=== PATIENT | female | born 1995 | race Hispanic/Latino ===

== ENCOUNTER 2024-10-24 01:50 | Emergency (ER) | payer OTHER ==
[2024-10-24 03:12] LABS: Absolute Basophils 0.1 K/uL (0-0.5); Absolute Eosinophils 0.2 K/uL (0-0.5); Absolute Lymphocytes (CBC) 2.5 K/uL (0.7-4.9); Absolute Monocytes 0.5 K/uL (0.1-1.3); Absolute Neutrophil 4.3 K/uL (1.8-8.0); Basophils % 1.1 % (0-1.3); Eosinophils % 2.8 % (0-4.4); Hematocrit 35.1 % (36.0-45.0); Hemoglobin 11.6 g/dL (12.0-15.0); Lymphocytes % 33.1 % (15.3-44.8); MCH 26.7 pg (27.0-35.0); MCHC 32.9 g/dL (32.0-36.0); MPV 9.4 fL (7.6-11.3); Monocytes % 6.9 % (3.3-12.3); Neutrophils % 56.1 % (41.7-73.7); Nucleated Red Blood Cells % 0.1 % (0-0); Platelets 255 thou/uL (152-406); RBC Red Blood Cell Count 4.33 M/uL (3.86-4.86); Red Cell Distribution Width 15.6 % (12.1-15.2)
[2024-10-24] MEDS ORDERED: NA CHLORIDE 0.9% 500 ML ONE ×2 (03:13→03:23)
[2024-10-24] MEDS ORDERED: METOCLOPRAMIDE 10 MG/2mL INJ ONE (03:13)
[2024-10-24] MEDS ORDERED: DIPHENHYDRAMINE 50 MG/ML VIAL ONE (03:13)
[2024-10-24] MEDS ORDERED: LORazepam 2 MG/ML VIAL ONE ×2 (03:23→04:41)
[2024-10-24 03:28] LABS: Anion Gap 9.8 mEq/L (5.0-15.0); Potassium 3.8 mEq/L (3.5-5.1)
[2024-10-24] MEDS ORDERED: NA CHLORIDE 0.9% 1,000 ML ONE (04:41)
[2024-10-24 05:00] LABS: Thyroid Stimulating Hormone 4.11 uIU/mL (0.358-3.740)
--- NOTE | 2024-10-24 06:16 | ER ---
Nurse's Notes [facility] Name: Angela Perez Age: 29 yrs Sex: Female : 1995 Arrival Date: 10/24/2024 Time: 01:50 Bed 5 Private MD: Diagnosis: Chest pain, unspecified Presentation: 10/24 02:15 Chief complaint: Patient states: CP and palpitations since last night. Coronavirus lg3 screen: Client denies travel out of the [place] in the last 14 days. At this time, the client does not indicate any symptoms associated with coronavirus-19. Ebola Screen: No symptoms or risks identified at this time. Initial Sepsis Screen: Does the patient meet any 2 criteria? No. Patient's initial sepsis screen is negative. Does the patient have a suspected source of infection? No. Patient's initial sepsis screen is negative. Risk Assessment: Do you want to hurt yourself or someone else? Patient reports no desire to harm self or others. Onset of symptoms was October 23, 2024. 02:15 Method Of Arrival: EMS: [facility] lg3 02:15 Acuity: SUHAIL 3 lg3 Triage Assessment: 02:39 General: Appears in no apparent distress. comfortable, Behavior is calm, cooperative. lg3 Pain: Complains of pain in chest Pain does not radiate. Pain currently is 3 out of 10 on a pain scale. Quality of pain is described as heavy, sharp. EENT: No deficits noted. No signs and/or symptoms were reported regarding the EENT system. Neuro: No deficits noted. [place] Agitation-Sedation Scale (RASS): 0 - Alert and Calm Level of Consciousness is awake, alert, obeys commands, Oriented to person, place, time, situation. Cardiovascular: Reports chest pain, Heart tones S1 S2 present Capillary refill < 3 seconds Clubbing of nail beds is absent JVD is absent Patient's skin is warm and dry. Rhythm is sinus rhythm. Respiratory: No deficits noted. Airway is patent Respiratory effort is even, unlabored, Respiratory pattern is regular, symmetrical, Breath sounds are clear bilaterally. GI: No deficits noted. No signs and/or symptoms were reported involving the gastrointestinal system. : No signs and/or symptoms were reported regarding the genitourinary system. Derm: No deficits noted. No signs and/or symptoms reported regarding the dermatologic system. Skin is intact, is healthy with good turgor, Skin is dry, Skin is normal, Skin temperature is warm. Musculoskeletal: No deficits noted. No signs and/or symptoms reported regarding the musculoskeletal system. Circulation, motion, and sensation intact. Range of motion: intact in all extremities. 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 - Infectious Disease History:: Denies. - Social history:: Smoking status: Patient denies any tobacco usage or history of. Patient/guardian denies using alcohol, street drugs. Screenin:41 [facility] ED Fall Risk Assessment (Adult) History of falling in the last 3 months, lg3 including since admission No falls in past 3 months (0 pts) Confusion or Disorientation No (0 pts) Intoxicated or Sedated No (0 pts) Impaired Gait No (0 pts) Mobility Assist Device Used No (0 pt) Altered Elimination No (0 pt) Score/Fall Risk Level 0 - 2 = Low Risk Oriented to surroundings, Maintained a safe environment, Educated pt \T\ family on fall prevention, incl call for assistance when getting out of bed, Assessed \T\ reinforced patient's understanding of fall precautions. Abuse screen: Denies threats or abuse. Denies injuries from another. Nutritional screening: No deficits noted. Tuberculosis screening: No symptoms or risk factors identified. Assessment: 02:41 General: see triage assessment. Pain: Complains of pain in chest Pain does not radiate. lg3 Pain currently is 3 out of 10 on a pain scale. Quality of pain is described as heavy, pressure, Pain began 1 day ago. 04:48 Reassessment: Patient appears in no apparent distress at this time. Patient and/or bm8 family updated on plan of care and expected duration. Pain level reassessed. Patient is alert, oriented x 3, equal unlabored respirations, skin warm/dry/pink. Patient denies pain at this time. Patient states feeling better. 06:53 Reassessment: Patient appears in no apparent distress at this time. Patient and/or bm8 family updated on plan of care and expected duration. Pain level reassessed. Patient is alert, oriented x 3, equal unlabored respirations, skin warm/dry/pink. pt reports mild headache but is ready to go Patient states feeling better. Patient states symptoms have improved. Vital Signs: 02:15 BP 119 / 77; Pulse 91; Resp 16 S; Temp 97.8(O); Pulse Ox 100% on R/A; Weight 90.72 kg lg3 (R); Height 5 ft. 5 in. (R); Pain 3/10; 03:11 BP 129 / 89; Pulse 93; Resp 16; Pulse Ox 100% on R/A; dd2 04:48 BP 127 / 77; Pulse 120; Resp 22; Temp 97.8; Pulse Ox 100% ; Pain 0/10; bm8 06:15 Pulse 108; ec2 06:53 BP 133 / 77; Pulse 112; Resp 22; Temp 97.8; Pulse Ox 100% ; Pain 2/10; bm8 02:15 Body Mass Index 33.28 (90.72 kg, 165.1 cm) lg3 02:15 Pain Scale: Adult lg3 04:48 Pain Scale: Adult bm8 06:53 Pain Scale: Adult bm8 Сергей Coma Score: 04:48 Eye Response: spontaneous(4). Motor Response: obeys commands(6). Verbal Response: bm8 oriented(5). Total: 15. 06:53 Eye Response: spontaneous(4). Motor Response: obeys commands(6). Verbal Response: bm8 oriented(5). Total: 15. ED Course: 01:56 Patient arrived in ED. [email or web address] 02:11 Latrell Espinoza MD is Attending Physician. ec2 02:26 XRAY Chest (1 view) In Process Unspecified. EDMS 02:39 Triage completed. lg3 02:39 Arm band placed on right wrist. lg3 02:40 EKG done, by phlebotomy services technician. af3 02:41 Initial lab(s) drawn, by ED staff, sent to lab. Inserted saline lock: 20 gauge in left lg3 antecubital area, using aseptic technique. Blood collected. Flushed with 10 mL NS. Patient maintains SpO2 saturation greater than 95% on room air. 02:41 Patient has correct armband on for positive identification. Family accompanied patient. lg3 04:48 No provider procedures requiring assistance completed. bm8 04:48 Client placed on continuous cardiac and pulse oximetry monitoring. NIBP monitoring bm8 applied. bus monitor on. Pulse ox on. NIBP on. Door closed. Noise minimized. Visitors limited. Warm blanket given. Pillow given. Verbal reassurance given. Head of bed elevated. 06:51 Guicho Rangel, RN is Primary Nurse. bm8 06:53 IV discontinued, intact, bleeding controlled, No redness/swelling at site. Pressure bm8 dressing applied. 06:53 Provided Education on: post er care. bm8 Administered Medications: 03:30 Drug: metoCLOPramide IVP 10 mg IVP once; over 1 to 2 minutes Route: IVP; Site: left 8 antecubital; 06:54 Follow up: Response: No adverse reaction bm8 03:30 Drug: diphenhydrAMINE IVP 25 mg IVP once Route: IVP; Site: left antecubital; bm8 06:54 Follow up: Response: No adverse reaction bm8 03:30 Drug: NS 0.9% IV 500 ml 500 ml IV at 1 bolus once; to be given as a bolus over 30 bm8 minutes Volume: 500 ml; Route: IV; Rate: 1 bolus; Site: left antecubital; 06:54 Follow up: Response: No adverse reaction; IV Status: Completed infusion bm8 03:31 Drug: NS 0.9% IV 500 ml 500 ml IV at 1 bolus once; to be given as a bolus over 30 bm8 minutes Volume: 500 ml; Route: IV; Rate: 1 bolus; Site: left antecubital; 06:54 Follow up: Response: No adverse reaction; IV Status: Completed infusion bm8 03:31 Drug: Ativan IVP 1 mg IVP once Route: IVP; Site: left antecubital; bm8 06:54 Follow up: Response: No adverse reaction bm8 04:48 Drug: NS 0.9% IV 1000 ml IV at 1 bolus Per protocol; to be given as a bolus over 60 bm8 minutes Route: IV; Rate: 1 bolus; Site: left antecubital; 06:54 Follow up: Response: No adverse reaction; IV Status: Completed infusion bm8 04:48 Drug: Ativan IVP 2 mg IVP once Route: IVP; Site: left antecubital; bm8 06:54 Follow up: Response: No adverse reaction bm8 Medication: 02:41 VIS not applicable for this client. lg3 Outcome: 06:15 Discharge ordered by . [email or web address] 06:53 Discharged to home ambulatory, with family, bm8 06:53 Condition: stable 06:53 Discharge instructions given to patient, family, Instructed on discharge instructions, follow up and referral plans. Demonstrated understanding of instructions, follow-up care, medications, Prescriptions given X 1, 06:55 Patient left the ED. bm8 Signatures: Dispatcher [employer] EDEmily Conti, RN RN lg3 Malgorzata [email or web address] Latrell Espinoza MD MD ec2 Guicho Rangel RN RN bm8 Sabrina Banks DIANA, RN RN dd2
--- NOTE | 2024-10-24 06:16 | EDPHYS ---
Physician Documentation [facility] Name: Angela Perez Age: 29 yrs Sex: Female : 1995 Arrival Date: 10/24/2024 Time: 01:50 Bed 5 Private MD: ED Physician Latrell Espinoza HPI: 10/24 02:24 This 29 yrs old Female presents to ER via Unassigned with complaints of Chest ec2 Pain. 02:24 Patient arrives today for evaluation of chest pain, palpitations as well as ec2 lightheadedness. Patient reports history of vertigo. Patient reports that she also has history of anxiety. States that she experienced palpitations today. No specific inciting factor. Patient reports improvement in symptoms at this time.. 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 - Infectious Disease History:: Denies. - Social history:: Smoking status: Patient denies any tobacco usage or history of. Patient/guardian denies using alcohol, street drugs. ROS: 02:24 Constitutional: as per hpi ec2 Exam: 02:24 Constitutional: GEN: NAD Head: atraumatic Eyes: EOMI Ears: External ears are ec2 normal. CV: regular rate LUNGS: no respiratory distress ABD: non-distended SKIN: no evidence of rashes MSK: no evidence of trauma Vital Signs: 02:15 BP 119 / 77; Pulse 91; Resp 16 S; Temp 97.8(O); Pulse Ox 100% on R/A; Weight 90.72 kg lg3 (R); Height 5 ft. 5 in. (R); Pain 3/10; 03:11 BP 129 / 89; Pulse 93; Resp 16; Pulse Ox 100% on R/A; dd2 04:48 BP 127 / 77; Pulse 120; Resp 22; Temp 97.8; Pulse Ox 100% ; Pain 0/10; bm8 06:15 Pulse 108; ec2 06:53 BP 133 / 77; Pulse 112; Resp 22; Temp 97.8; Pulse Ox 100% ; Pain 2/10; bm8 02:15 Body Mass Index 33.28 (90.72 kg, 165.1 cm) lg3 02:15 Pain Scale: Adult lg3 04:48 Pain Scale: Adult bm8 06:53 Pain Scale: Adult bm8 Сергей Coma Score: 04:48 Eye Response: spontaneous(4). Motor Response: obeys commands(6). Verbal Response: bm8 oriented(5). Total: 15. 06:53 Eye Response: spontaneous(4). Motor Response: obeys commands(6). Verbal Response: bm8 oriented(5). Total: 15. MDM: 02:11 Medical Screening Exam initiated ec2 02:25 Data reviewed: vital signs, nurses notes. ED course: Patient arrives today for chest ec2 pain, palpitations as well as vertigo. Examination yields neuro intact individual is in no acute distress with a reassuring examination. EKG obtained, independently reviewed and interpreted by me, shows normal sinus rhythm, rate of 88, no acute ST segment elevation, intervals are nonactionable. Will obtain cardiac workup, treat the patient's vertigo with the reglan and benadryl. 03:34 ED course: EKG independently reviewed and interpreted by me, shows sinus tachycardia, ec2 rate of 156, no acute ST segment elevations, intervals are nonactionable. Patient seem to have had a reaction to the Reglan, will give the patient Ativan. Will repeat EKG after medications.. 04:19 ED course: Metabolic profile reassuring, CBC with slight anemia, testing ec2 negative. Troponin within normal ranges.. 06:15 ED course: On reassessment patient reports marked improvement in her symptoms, is ec2 resting comfortably. Will discharge home have the patient follow-up with PCP, prescribed Atarax, possible anxiety. Doubt PE, doubt dissection. Return precautions given.. 10/24 02:11 Order name: Basic Metabolic Panel; Complete Time: 05:28 ec2 10/24 02:11 Order name: CBC with Diff; Complete Time: 04:19 ec2 10/24 02:11 Order name: Troponin HS; Complete Time: 05:28 ec2 10/24 02:11 Order name: Test, Serum; Complete Time: 04:19 ec2 10/24 04:31 Order name: TSH ec2 10/24 04:31 Order name: T4 Free ec2 10/24 04:35 Order name: T4 Free; Complete Time: 05:28 EDMS 10/24 04:35 Order name: Thyroid Stimulating Hormone; Complete Time: 05:28 EDMS 10/24 02:11 Order name: XRAY Chest (1 view) ec2 10/24 02:11 Order name: Cardiac monitoring; Complete Time: 02:59 ec2 10/24 02:11 Order name: EKG - Nurse/Tech; Complete Time: 02:40 ec2 10/24 02:11 Order name: IV Saline Lock; Complete Time: 02:40 ec2 10/24 02:11 Order name: Labs collected and sent; Complete Time: 02:40 ec2 10/24 02:11 Order name: O2 Per Protocol; Complete Time: 02:58 ec2 10/24 02:11 Order name: O2 Sat Monitoring; Complete Time: 02:58 ec2 Administered Medications: 03:30 Drug: metoCLOPramide IVP 10 mg IVP once; over 1 to 2 minutes Route: IVP; Site: left 8 antecubital; 06:54 Follow up: Response: No adverse reaction bm8 03:30 Drug: diphenhydrAMINE IVP 25 mg IVP once Route: IVP; Site: left antecubital; bm8 06:54 Follow up: Response: No adverse reaction bm8 03:30 Drug: NS 0.9% IV 500 ml 500 ml IV at 1 bolus once; to be given as a bolus over 30 bm8 minutes Volume: 500 ml; Route: IV; Rate: 1 bolus; Site: left antecubital; 06:54 Follow up: Response: No adverse reaction; IV Status: Completed infusion bm8 03:31 Drug: NS 0.9% IV 500 ml 500 ml IV at 1 bolus once; to be given as a bolus over 30 bm8 minutes Volume: 500 ml; Route: IV; Rate: 1 bolus; Site: left antecubital; 06:54 Follow up: Response: No adverse reaction; IV Status: Completed infusion bm8 03:31 Drug: Ativan IVP 1 mg IVP once Route: IVP; Site: left antecubital; bm8 06:54 Follow up: Response: No adverse reaction bm8 04:48 Drug: NS 0.9% IV 1000 ml IV at 1 bolus Per protocol; to be given as a bolus over 60 bm8 minutes Route: IV; Rate: 1 bolus; Site: left antecubital; 06:54 Follow up: Response: No adverse reaction; IV Status: Completed infusion bm8 04:48 Drug: Ativan IVP 2 mg IVP once Route: IVP; Site: left antecubital; bm8 06:54 Follow up: Response: No adverse reaction bm8 Disposition Summary: 10/24/24 06:15 Discharge Ordered Notes: Location: Home ec2 Condition: Stable ec2 Diagnosis - Chest pain, unspecified ec2 Followup: ec2 - With: Private Physician - When: - Reason: Re-evaluation by your physician Discharge Instructions: - Discharge Summary Sheet ec2 - Nonspecific Chest Pain, Adult, [id number] ec2 Forms: - Medication Reconciliation Form ec2 - Antibiotic Education ec2 - Prescription Opioid Use ec2 - Patient Portal Instructions ec2 - Leadership Thank You Letter ec2 Prescriptions: - Hydroxyzine HCl 50 mg Oral Tablet - take 1 tablet ORAL route every 8 hours As needed; 20 tablet; Refills: 0, ec2 Product Selection Permitted Signatures: Dispatcher [employer] Emily Carpenter RN RN lg3 Latrell Espinoza MD MD ec2 Guicho Rangel RN RN bm8
--- NOTE | 2024-10-24 06:39 | RAD REPORT ---
EXAM: XR Chest 1 View AP HISTORY: Chest pain COMPARISON: Chest 2 Views AP/PA Lateral 09/11/2024 TECHNIQUE: Chest 1 View AP FINDINGS: Trachea midline. Heart size and pulmonary vessels within normal limits. Lungs clear without evidence of consolidation, mass, or significant pulmonary edema. No significant pleural effusion or pneumothorax. Prominent bilateral 1st costochondral junctions (normal variant). Mild symmetric bilateral lower lungs/chest density most likely represents overlying breast/chest wall attenuation artifact. Bones unremarkable. IMPRESSION: Unremarkable chest radiograph. Electronically signed by: Mohit Ron MD 10/24/2024 03:33 AM CDT RP Due to temporary technical issues with the [employer] reporting system, reports are being leonard d by the in-house radiologist without review as a courtesy to ensure prompt reporting. The interpreting radiologist is fully responsible for the content of the report. Transcribed Date/Time: 10/24/2024 6:38 AM
[2024-10-24 07:49] VITALS: TEMP 97.8; O2SAT 100
[2024-10-24 07:54] VITALS: BP 133/77
== END 2024-10-24 06:55 | disposition home or self-care (01) ==
LOC: ER 01:50
DX: R07.9 Chest pain, unspecified (principal); R00.2 Palpitations
CPT/HCPCS: 96361; 93005 ×2; 85025; 80048; 36415; 84703; 84443; 84484; 84439; 71045; 96375; 96374; 99285; J2765; J1200; J7040 ×2; J7030